=== PATIENT | female | born 1965 | race Caucasian/White ===

== ENCOUNTER 2017-09-22 19:36 | Observation (INO) | payer OTHER ==
[~2017-09-22] VITALS: Ht 180.3 cm; Wt 145.8 kg
[2017-09-22 20:21] LABS: HEMATOCRIT 39.4 % (36.0-46.0); HEMOGLOBIN 13.2 G/DL (11.9-15.5); MCH 29.3 PG (29.0-34.0); MCHC 33.5 G/DL (30.0-36.0); MCV 87.4 FL (83-99); RBC DIS.WIDTH-CV 13.8 % (11.8-14.6); RBC DIS.WIDTH-SD 43.6 % (39-53); RED BLOOD COUNT 4.51 M/uL (3.80-5.20); WHITE BLOOD COUNT 9.1 K/uL (4.1-10.2)
[2017-09-22 20:37] LABS: CHLORIDE 105 mEq/L (99-109); POTASSIUM 4.1 mEq/L (3.7-5.4); SODIUM 139 mEq/L (136-147)
[2017-09-22 20:39] LABS: GLUCOSE 99 mg/dL (70-99)
[2017-09-22 20:43] LABS: UREA NITROGEN (BUN) 16 mg/dL (9-23)
[2017-09-22 20:46] LABS: GFR ESTIMATE (CALCULATED) > 59 mL/min/
[2017-09-22] MEDS ORDERED: HYDROCHLOROTHIA25 MG PO (20:56)
[2017-09-22] MEDS ORDERED: SYNTHROID75 MCG PO (20:56)
[2017-09-22] MEDS ORDERED: PRINIVIL20 MG PO (20:57)
[2017-09-22] MEDS ORDERED: PRILOSEC20 MG PO (20:57)
[2017-09-22] MEDS ORDERED: TYLENOL EXTRA500 MG PO (20:57)
[2017-09-22 21:07] LABS: MAGNESIUM 2.4 mg/dL (1.3-2.7)
[2017-09-22 21:10] LABS: PLAT.SUFFICIENCY ADEQUATE
[2017-09-22 21:18] LABS: TROP-I INTERPRETATION NEGATIVE; TROPONIN-I < 0.01 ng/mL (0.0-0.30)
[2017-09-22 21:31] LABS: PLATELET COUNT 248 K/uL (156-360)
[2017-09-23 01:30] VITALS: BP 97/64
[2017-09-23 03:04] LABS: TROP-I INTERPRETATION NEGATIVE; TROPONIN-I < 0.01 ng/mL (0.0-0.30)
[2017-09-23 03:40] VITALS: BP 82/52
[2017-09-23 03:45] VITALS: BP 93/53
[2017-09-23 07:56] VITALS: BP 97/63
[2017-09-23 09:26] LABS: TROP-I INTERPRETATION NEGATIVE; TROPONIN-I < 0.01 ng/mL (0.0-0.30)
[2017-09-23 11:19] VITALS: BP 102/58
[2017-09-23 13:47] VITALS: BP 106/65
== END 2017-09-23 14:14 | disposition home or self-care (01) ==
LOC: EME 19:36 → 5WEST 23:36 → EDOF 23:36 → ENRESERV 23:48 → 5WEST 09-23 01:22
PROVIDERS: Physician Assistant
DX: R07.89 Other chest pain (principal); I10 Essential (primary) hypertension; K21.9 Gastro-esophageal reflux disease without esophagitis; E03.9 Hypothyroidism, unspecified; R11.0 Nausea; R06.02 Shortness of breath; E78.5 Hyperlipidemia, unspecified; R00.2 Palpitations; E66.01 Morbid (severe) obesity due to excess calories; Z68.41 Body mass index [BMI] 40.0-44.9, adult; Z82.49 Family history of ischemic heart disease and other diseases of the circulatory system; Z83.3 Family history of diabetes mellitus; Z88.5 Allergy status to narcotic agent; Z88.0 Allergy status to penicillin
CPT/HCPCS: 71046; 71275; 80048; 83735; 84484; 85027; 93005; 99281; 99285; G0378; J1644; J2270; J2405; J7030